=== PATIENT | male | born 1980 | race Caucasian/White ===

== ENCOUNTER → 2023-12-15 | Outpatient (CLI) | payer SELFPAY ==
[2023-12-15 11:47] LABS: BASO # 0.02 K/mm3 (0.02-0.10); EOS # 0.09 K/mm3 (0.04-0.40); EOS % 1.7 % (0.0-4.0); HEMATOCRIT 47.8 % (42.0-52.0); HEMOGLOBIN 15.2 g/dL (13.5-18.0); LYMPH# 1.83 K/mm3 (1.50-4.00); MEAN CELL VOLUME 94 fl (78-100); MEAN CORPUSCULAR HEMOGLOBIN 30 pg (27-31); MEAN CORPUSCULAR HGB CONC 32 g/dL (33-37); MEAN PLATELET VOLUME 9.9 fl (7.4-10.4); MONO # 0.45 K/mm3 (0.20-0.80); NEU # 2.86 K/mm3 (1.40-6.50); PLATELET COUNT 216 K/mm3 (130-400); RED CELL DISTRIBUTION WIDTH 12.5 % (11.5-14.5); WHITE BLOOD COUNT 5.3 K/mm3 (4.8-10.8)
[2023-12-15 11:54] LABS: ALBUMIN 4.5 g/dL (3.5-5.0)
[2023-12-15 11:55] LABS: CALCIUM 9.5 mg/dL (8.3-10.5)
[2023-12-15 11:56] LABS: TOTAL PROTEIN 7.5 g/dL (6.4-8.3)
== END ==
LOC: LAB 11:23
PROVIDERS: Nurse Practitioner Family
DX: R42 Dizziness and giddiness (principal)

== ENCOUNTER → 2024-01-20 | Outpatient (CLI) | payer SELFPAY | LOC: LAB 10:16 | DX: E78.5 Hyperlipidemia, unspecified (principal) ==